=== PATIENT | female | born 2000 | race Caucasian/White ===

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

== ENCOUNTER 2018-09-28 10:56 | Emergency (ER) | payer MEDICAID ==
[~2018-09-28] VITALS: Ht 162.6 cm; Wt 67.6 kg
[2018-09-28] MEDS ORDERED: EFFEXOR XR37.5 MG PO (11:04)
[2018-09-28] MEDS ORDERED: EFFEXOR 5050 MG/1 T1 PO (11:05)
[2018-09-28 11:26] LABS: ABSOLUTE EOSINOPHILS 0.1 thou/uL (0.0-0.7); ABSOLUTE LYMPHOCYTES 2.3 thou/uL (0.8-5.3); ABSOLUTE MONOCYTES 0.5 thou/uL (0.0-1.2); BASOPHILS 0.6 %; EOSINOPHILS 1.5 %; HEMATOCRIT 44.5 % (37.0-47.0); HEMOGLOBIN 14.9 gm/dL (12.0-15.0); MCHC 33.5 g/dL (28.0-37.0); MCV 89.6 fL (80.0-100.0); MONOCYTES 7.3 %; MPV 9.5 fl. (7.2-11.1); NUCLEATED RBCS 0 /100WBC; PLATELET COUNT* 222 thou/uL (150-400); POLYS 57.6 %; RBC 4.96 mil/uL (4.20-5.00); RDW-CV 12.4 % (10.5-14.5); WBC 6.9 thou/uL (4.0-11.0)
[2018-09-28 11:59] LABS: CALCIUM 8.9 mg/dL (8.5-10.1); CREATININE 0.6 mg/dL (0.6-1.3); POTASSIUM 3.7 mmol/L (3.5-5.1)
[2018-09-28 12:03] LABS: TOTAL BILIRUBIN 0.2 mg/dL (<0.1-1.0); TOTAL PROTEIN 7.7 g/dL (6.4-8.2)
[2018-09-28 12:24] LABS: URINE BILIRUBIN NEGATIVE (Negative); URINE BLOOD NEGATIVE (Negative); URINE CLARITY CLEAR; URINE COLOR YELLOW; URINE GLUCOSE-RANDOM 3+ (Negative); URINE KETONES 1+ (Negative); URINE LEUKOCYTES-REFLEX NEGATIVE (Negative); URINE NITRITE-REFLEX NEGATIVE (Negative); URINE PROTEIN TRACE (Negative); URINE SPECIFIC GRAVITY 1.025 (1.005-1.030); URINE UROBILINOGEN 0.2 E.U./dl (0.2-1.0)
[2018-09-28 12:34] VITALS: BP 115/51
[2018-09-28] MEDS ORDERED: ZOFRAN ODT4 MG SUBLING (12:52)
== END 2018-09-28 13:25 | disposition home or self-care (01) ==
LOC: M.ERS 10:56
PROVIDERS: Family Medicine
DX: E10.649 Type 1 diabetes mellitus with hypoglycemia without coma (principal); R11.2 Nausea with vomiting, unspecified; F32.9 Major depressive disorder, single episode, unspecified; Z90.89 Acquired absence of other organs

== ENCOUNTER 2019-06-30 19:40 | Inpatient (IN) | payer MEDICAID ==
[~2019-06-30] VITALS: Ht 167.6 cm; Wt 67.8 kg
[~2019-06-30 19:40] MED LIST changes: +EFFEXOR 5050 MG/1 T1 PO; +EFFEXOR XR37.5 MG PO; +ZOFRAN ODT4 MG SUBLING
[2019-06-30 19:47] VITALS: BP 143/88
[2019-06-30 20:14] LABS: ABSOLUTE EOSINOPHILS 0.1 thou/uL (0.0-0.7); ABSOLUTE MONOCYTES 0.8 thou/uL (0.0-1.2); ABSOLUTE NEUTROPHILS 13.4 thou/uL (1.6-8.1); BASOPHILS 0.2 %; EOSINOPHILS 0.4 %; HEMATOCRIT 47.1 % (37.0-47.0); LYMPHOCYTES 6.7 %; MCH 29.8 pg (26.0-34.0); MCHC 33.9 g/dL (28.0-37.0); MCV 87.8 fL (80.0-100.0); MONOCYTES 5.5 %; MPV 9.2 fl. (7.2-11.1); NUCLEATED RBCS 0 /100WBC; PLATELET COUNT* 267 thou/uL (150-400); POLYS 87.2 %; RBC 5.36 mil/uL (4.20-5.00); RDW-CV 12.3 % (10.5-14.5); WBC 15.4 thou/uL (4.0-11.0)
[2019-06-30 20:25] LABS: ANION GAP 15 mmol/L (7-16); BUN 19 mg/dL (7-18); CALCIUM 9.6 mg/dL (8.5-10.1); CHLORIDE 101 mmol/L (98-107); CO2 24 mmol/L (21-32); CREATININE 0.7 mg/dL (0.6-1.3); GLUCOSE 189 mg/dL (70-99); POTASSIUM 3.1 mmol/L (3.5-5.1); SODIUM 140 mmol/L (136-145)
[2019-06-30 20:30] LABS: ALBUMIN 4.3 g/dL (3.4-5.0); ALKALINE PHOSPHATASE 80 U/L (46-116); MAGNESIUM 1.3 mg/dL (1.8-2.4); PHOSPHORUS* 4.2 mg/dL (2.5-4.9); SGOT 19 U/L (15-37); SGPT 25 U/L (30-65); TOTAL BILIRUBIN 0.3 mg/dL (<0.1-1.0); TOTAL PROTEIN 7.8 g/dL (6.4-8.2)
[2019-06-30 20:37] LABS: BE -5.1 mmol/L (-2 to +3); PCO2 33.9 mmHg (35.0-45.0); PO2 94.6 mmHg (75.0-100.0)
[2019-06-30 22:20] VITALS: BP 152/80
[2019-06-30 22:51] VITALS: BP 117/78
[2019-07-01 03:15] LABS: URINE BILIRUBIN NEGATIVE (Negative); URINE BLOOD NEGATIVE (Negative); URINE CLARITY CLEAR; URINE COLOR STRAW; URINE GLUCOSE-RANDOM 2+ (Negative); URINE LEUKOCYTES-REFLEX NEGATIVE (Negative); URINE NITRITE-REFLEX NEGATIVE (Negative); URINE PROTEIN NEGATIVE (Negative); URINE SPECIFIC GRAVITY 1.025 (1.005-1.030); URINE UROBILINOGEN 0.2 E.U./dl (0.2-1.0)
[2019-07-01 03:21] LABS: AMP/METHAMP Negative (Negative); BARBITURATES Negative (Negative); BENZODIAZEPINES Negative (Negative); COCAINE Negative (Negative); METHADONE Negative (Negative); OPIATES Negative (Negative); PCP Negative (Negative); THC POSITIVE (Negative)
[2019-07-01 03:29] LABS: URINE KETONES 3+ (Negative)
[2019-07-01 04:00] VITALS: BP 109/61
[2019-07-01 07:52] LABS: MAGNESIUM 2.7 mg/dL (1.8-2.4); POTASSIUM 3.9 mmol/L (3.5-5.1)
[2019-07-01 08:00] VITALS: BP 108/65
[2019-07-01 12:00] VITALS: BP 108/53
[2019-07-01 13:27] VITALS: BP 108/53
[2019-07-01 16:00] VITALS: BP 104/61
--- NOTE | 2019-07-01 18:00 | EKG ---
[place] [address] ELECTROCARDIOGRAM REPORT Name: MAHESH MONTALVO Room: [address] ADM [facility].#: [id number] Admission: 06/30/19 Attend Phys: Unruly Ordaz Discharge: Date of : 89 Report #: [id number] THIS REPORT FOR: //name// [facility] ED Test Date: 2019-06-30 Test Time: 19:49:17 Pat Name: MAHESH MONTALVO Department: Room: [facility] Gender: F [employer] Estate [employer]quisition Analyst: ELLA : 2000 Requested By: Pati Lopez Order Number: [id number] MD: Santhosh Gonzalez Measurements Intervals [place] Rate: 91 P: 25 MS: 131 QRS: 48 QRSD: 85 T: 19 QT: 367 QTc: 452 Interpretive Statements Sinus rhythm Compared to ECG 10/07/2016 10:38:54 ST (T wave) deviation no longer present Electronically Signed On 07-01-2019 18:00:33 CDT by Santhosh Gonzalez [email or web address] <ELECTRONICALLY SIGNED> By: Santhosh Gonzalez MD, FACC 07/01/19 1800 48 48 Santhosh Gonzalez MD, [facility] /EPI
[2019-07-01 20:00] VITALS: BP 122/69
[2019-07-02] VITALS: BP 110/80
[2019-07-02 04:00] VITALS: BP 113/69
[2019-07-02 04:21] LABS: HEMATOCRIT 45.1 % (37.0-47.0); HEMOGLOBIN 15.2 gm/dL (12.0-15.0); MCHC 33.6 g/dL (28.0-37.0); MCV 89.5 fL (80.0-100.0); MPV 9.6 fl. (7.2-11.1); RBC 5.05 mil/uL (4.20-5.00); RDW-CV 12.5 % (10.5-14.5)
[2019-07-02 05:18] LABS: ALBUMIN 3.2 g/dL (3.4-5.0); CALCIUM 8.8 mg/dL (8.5-10.1); CREATININE 0.6 mg/dL (0.6-1.3); POTASSIUM 4.5 mmol/L (3.5-5.1); TOTAL BILIRUBIN 0.4 mg/dL (<0.1-1.0); TOTAL PROTEIN 6.8 g/dL (6.4-8.2)
[2019-07-02 07:30] VITALS: BP 81/66
[2019-07-02 11:43] VITALS: BP 110/58
[2019-07-02 17:20] VITALS: BP 141/70
[2019-07-02 20:00] VITALS: BP 137/83
[2019-07-03 00:35] VITALS: BP 135/94
[2019-07-03 04:00] VITALS: BP 117/72
[2019-07-03 08:00] VITALS: BP 142/86
[2019-07-03 10:41] LABS: CALCIUM 9.1 mg/dL (8.5-10.1); CREATININE 0.6 mg/dL (0.6-1.3); MAGNESIUM 1.5 mg/dL (1.8-2.4); POTASSIUM 3.6 mmol/L (3.5-5.1)
[2019-07-03 11:30] VITALS: BP 136/89
== END 2019-07-03 15:49 | disposition home or self-care (01) | DRG 639 ==
LOC: M.ERS 19:40 → M.2W 21:29 → M.TBA-ER 21:29 → M.2W 22:51
PROVIDERS: Family Medicine; Personal Emergency Response Attendant; ADMIT Internal Medicine
DX: E10.10 Type 1 diabetes mellitus with ketoacidosis without coma (principal); K59.00 Constipation, unspecified; F32.9 Major depressive disorder, single episode, unspecified; E10.69 Type 1 diabetes mellitus with other specified complication; E87.6 Hypokalemia; Z79.4 Long term (current) use of insulin; Z82.49 Family history of ischemic heart disease and other diseases of the circulatory system

== ENCOUNTER 2019-08-09 09:32 | Emergency (ER) | payer MEDICAID ==
[~2019-08-09] VITALS: Ht 162.6 cm; Wt 69.4 kg
[2019-08-09 10:30] LABS: ABSOLUTE LYMPHOCYTES 1.9 thou/uL (0.8-5.3); ABSOLUTE MONOCYTES 0.4 thou/uL (0.0-1.2); ABSOLUTE NEUTROPHILS 9.3 thou/uL (1.6-8.1); BASOPHILS 0.2 %; EOSINOPHILS 0.1 %; HEMATOCRIT 39.4 % (37.0-47.0); HEMOGLOBIN 13.5 gm/dL (12.0-15.0); LYMPHOCYTES 16.5 %; MCH 29.5 pg (26.0-34.0); MCHC 34.2 g/dL (28.0-37.0); MCV 86.3 fL (80.0-100.0); MONOCYTES 3.7 %; MPV 8.9 fl. (7.2-11.1); NUCLEATED RBCS 0 /100WBC; PLATELET COUNT* 373 thou/uL (150-400); POLYS 79.5 %; RBC 4.56 mil/uL (4.20-5.00); RDW-CV 12.9 % (10.5-14.5); WBC 11.8 thou/uL (4.0-11.0)
[2019-08-09 10:34] LABS: URINE BILIRUBIN NEGATIVE (Negative); URINE BLOOD NEGATIVE (Negative); URINE CLARITY CLEAR; URINE COLOR YELLOW; URINE GLUCOSE-RANDOM 2+ (Negative); URINE KETONES TRACE (Negative); URINE LEUKOCYTES-REFLEX NEGATIVE (Negative); URINE NITRITE-REFLEX NEGATIVE (Negative); URINE PROTEIN NEGATIVE (Negative); URINE UROBILINOGEN 0.2 E.U./dl (0.2-1.0)
[2019-08-09 10:43] LABS: CALCIUM 9.5 mg/dL (8.5-10.1); CREATININE 0.6 mg/dL (0.6-1.3)
[2019-08-09 10:48] LABS: TOTAL BILIRUBIN 0.4 mg/dL (<0.1-1.0); TOTAL PROTEIN 8.2 g/dL (6.4-8.2)
[2019-08-09 12:02] VITALS: BP 129/86
== END 2019-08-09 12:05 | disposition home or self-care (01) ==
LOC: M.ERS 09:32
PROVIDERS: Family Medicine
DX: R10.31 Right lower quadrant pain (principal); E11.9 Type 2 diabetes mellitus without complications; F32.9 Major depressive disorder, single episode, unspecified; Z98.890 Other specified postprocedural states; Z79.4 Long term (current) use of insulin

== ENCOUNTER 2020-06-22 08:12 | Emergency (ER) | payer MEDICAID ==
[~2020-06-22] VITALS: Ht 165.1 cm; Wt 72.6 kg
[2020-06-22 08:35] LABS: URINE BILIRUBIN NEGATIVE (Negative); URINE BLOOD NEGATIVE (Negative); URINE CLARITY CLEAR; URINE COLOR YELLOW; URINE GLUCOSE-RANDOM 3+ (Negative); URINE KETONES 3+ (Negative); URINE LEUKOCYTES-REFLEX NEGATIVE (Negative); URINE NITRITE-REFLEX NEGATIVE (Negative); URINE PROTEIN NEGATIVE (Negative); URINE SPECIFIC GRAVITY 1.025 (1.005-1.030); URINE UROBILINOGEN 0.2 E.U./dl (0.2-1.0)
[2020-06-22 08:37] LABS: ACETEST (KETONE CONFIRMATORY) Large (Negative)
[2020-06-22 08:43] LABS: ABSOLUTE BASOPHILS 0.1 thou/uL (0.0-0.2); ABSOLUTE EOSINOPHILS 0.1 thou/uL (0.0-0.7); ABSOLUTE LYMPHOCYTES 2.7 thou/uL (0.8-5.3); ABSOLUTE MONOCYTES 0.7 thou/uL (0.0-1.2); ABSOLUTE NEUTROPHILS 8.5 thou/uL (1.6-8.1); BASOPHILS 0.5 %; BE -5.1 mmol/L (-2 to +3); EOSINOPHILS 1.1 %; HEMATOCRIT 45.5 % (37.0-47.0); LYMPHOCYTES 22.6 %; MCH 29.2 pg (26.0-34.0); MCHC 33.1 g/dL (28.0-37.0); MCV 88.3 fL (80.0-100.0); MONOCYTES 5.6 %; MPV 8.5 fl. (7.2-11.1); NUCLEATED RBCS 0 /100WBC; PCO2 VENOUS 50.9 mmHg (41.0-51.0); PLATELET COUNT* 308 thou/uL (150-400); PO2 VENOUS 42.9 mmHg (35.0-45.0); POLYS 70.2 %; RBC 5.15 mil/uL (4.20-5.00); RDW-CV 12.5 % (10.5-14.5); WBC 12.1 thou/uL (4.0-11.0)
[2020-06-22 08:51] LABS: CALCIUM 9.2 mg/dL (8.5-10.1); CREATININE 0.7 mg/dL (0.6-1.3)
[2020-06-22 08:56] LABS: ALBUMIN 4.2 g/dL (3.4-5.0); TOTAL BILIRUBIN 0.5 mg/dL (<0.1-1.0); TOTAL PROTEIN 8.3 g/dL (6.4-8.2)
[2020-06-22] MEDS ORDERED: ZOFRAN ODT4 MG SUBLING (09:59)
[2020-06-22] MEDS ORDERED: DIFLUCAN150 MG PO (09:59)
[2020-06-22] MEDS ORDERED: NORCO 5-325 TA1 EAC2 PO (09:59)
[2020-06-22 10:09] VITALS: BP 112/65
== END 2020-06-22 10:10 | disposition home or self-care (01) ==
LOC: M.ERS 08:12
PROVIDERS: Family Medicine
DX: E11.10 Type 2 diabetes mellitus with ketoacidosis without coma (principal); B37.3 Candidiasis of vulva and vagina; R11.2 Nausea with vomiting, unspecified; R10.33 Periumbilical pain; Z90.89 Acquired absence of other organs

== ENCOUNTER → 2021-02-22 | Outpatient (CLI) | payer OTHER, MEDICAID ==
[~2021-02-22] MED LIST changes: +DIFLUCAN150 MG PO; +NORCO 5-325 TA1 EAC2 PO
== END ==
LOC: M.CT 02-02 16:03
PROVIDERS: ATTEND Registered Nurse Diabetes Educator
DX: I63.9 Cerebral infarction, unspecified (principal); R55 Syncope and collapse; R11.2 Nausea with vomiting, unspecified; E10.9 Type 1 diabetes mellitus without complications; F17.200 Nicotine dependence, unspecified, uncomplicated; R51.9 Headache, unspecified